=== PATIENT | female | born 1975 | race Caucasian/White ===

== ENCOUNTER 2018-12-11 08:29 | Day surgery (SDC) | payer OTHER ==
[2018-12-09 15:36] VITALS: BMI 36.4
[2018-12-11 10:48] VITALS: TEMP 97
[2018-12-11 11:36] VITALS: BP 120/73; PULSE 82
--- NOTE | 2018-12-14 18:06 | PATH ---
Surgical Pathology Report Patient Name: PIERRE GRECO [facility]. Rec. #: [id number] /Age/Gender: 1975 (Age: 43) / F Account: [id number] Location: [facility]-ENDOSCOPY Taken: 12/11/2018 Received: 12/11/2018 Reported: 12/14/2018 Physicians: Juany Meng M.D. Specimen(s) Received A: BX ANTRUM B: BX DISTAL AND MID ESOPHAGUS Clinical History Dysphagia, Schatzki's ring Postoperative diagnosis: Hiatal hernia with GERD, antral gastritis Final Diagnosis A. ANTRUM, BIOPSY: GASTRIC MUCOSA WITH REACTIVE GASTROPATHY AND FOCAL CHRONIC GASTRITIS. IMMUNOSTAIN FOR H. PYLORI IS NEGATIVE. NEGATIVE FOR INTESTINAL METAPLASIA. B. DISTAL AND MID ESOPHAGUS, BIOPSY: ESOPHAGEAL MUCOSA WITH MILD REFLUX ESOPHAGITIS. NEGATIVE FOR INTESTINAL METAPLASIA. NEGATIVE FOR EOSINOPHILIC ESOPHAGITIS. Electronically Signed Trent Ortiz M.D. Gross Description A. Received in formalin, labeled "biopsy antrum" are 4 valerio, irregular portions of soft tissue ranging from 0.2-0.5 cm. in greatest dimension. The specimens are submitted in toto in one cassette. B. Received in formalin, labeled "biopsy distal and mid esophagus" are 4 valerio, irregular portions of soft tissue ranging from 0.4-0.6 cm. in greatest dimension. The specimens are submitted in toto in one cassette. DL/12/11/2018 saudi12/11/2018
== END 2018-12-11 11:37 | disposition home or self-care (01) ==
LOC: JASU-ENDO 08:29
PROVIDERS: ATTEND Internal Medicine Gastroenterology
PROC: 0DB68ZX Excision of Stomach, Via Natural or Artificial Opening Endoscopic, Diagnostic (ICD-10-PCS; 2018-12-11)
PROC: 0DB28ZX Excision of Middle Esophagus, Via Natural or Artificial Opening Endoscopic, Diagnostic (ICD-10-PCS; 2018-12-11)
PROC: 0DB38ZX Excision of Lower Esophagus, Via Natural or Artificial Opening Endoscopic, Diagnostic (ICD-10-PCS; principal; 2018-12-11 09:30)
DX: K21.0 Gastro-esophageal reflux disease with esophagitis (principal); K44.9 Diaphragmatic hernia without obstruction or gangrene; K25.9 Gastric ulcer, unspecified as acute or chronic, without hemorrhage or perforation; K22.4 Dyskinesia of esophagus
CPT/HCPCS: 84703; 88305-TC; 88342-TC

== ENCOUNTER 2024-03-12 04:33 | Day surgery (SDC) | payer OTHER ==
[2024-03-08 14:33] VITALS: BMI 32.3
[2024-03-12 09:49] VITALS: TEMP 97.1
[2024-03-12 10:24] VITALS: BP 109/73; PULSE 78; RESP 13
== END 2024-03-12 10:31 | disposition home or self-care (01) ==
LOC: JASU-ENDO 04:33
PROVIDERS: ATTEND Internal Medicine Gastroenterology
PROC: 0DBL8ZX Excision of Transverse Colon, Via Natural or Artificial Opening Endoscopic, Diagnostic (ICD-10-PCS; 2024-03-12)
PROC: 0DBM8ZX Excision of Descending Colon, Via Natural or Artificial Opening Endoscopic, Diagnostic (ICD-10-PCS; principal; 2024-03-12 08:30)
DX: Z12.11 Encounter for screening for malignant neoplasm of colon (principal); D12.4 Benign neoplasm of descending colon; D12.3 Benign neoplasm of transverse colon; K64.8 Other hemorrhoids
CPT/HCPCS: 81025; 88305-TC